=== PATIENT | male | born 1990 | race Two or more races ===

== ENCOUNTER 2017-05-24 02:07 | Observation (INO) | payer OTHER ==
[2017-05-24 02:46] LABS: ABS Basophils 0.1 10^3/ul (0-0.2); ABS Eosinophils 0.1 10^3/ul (0-0.6); ABS Lymphocytes 1.8 10^3/ul (1.0-4.8); ABS Monocytes 1.4 10^3/ul (0-0.8); ABS Neutrophils 16.2 10^3/ul (1.5-7.7); ABS Nucleated RBC 0 10^3/ul; Eosinophil % 0.5 % (0-6); Hematocrit 46 % (42-52); Hemoglobin 15.5 g/dl (14.0-18.0); Lymphocyte % 9.2 % (25-47); Mean Corpuscular HGB Conc 34 g/dl (31-36); Mean Corpuscular Hemoglobin 27 pg (27-31); Mean Corpuscular Volume 79 fL (80-94); Mean Platelet Volume 7 um3 (7.4-10.4); Nucleated Red Blood Cells % 0; Platelet Count 382 10^3/ul (150-450); Red Blood Count 5.81 10^6/ul (4.0-5.4); Red Cell Distribution Width 13 % (10.5-15); White Blood Count 19.6 10^3/ul (3.5-10.8)
[2017-05-24 03:04] LABS: EGFR Non-African American 89.3 (>60)
[2017-05-24] MEDS ORDERED: Metoclopramide IV* 5 MG/ML 2 ML VIAL IV SLOW PU ONE (03:11)
[2017-05-24] MEDS ORDERED: NS 0.9% 1000 ML* 1,000 ML IV ONE ×2 (03:11→07:41)
[2017-05-24] MEDS ORDERED: Morphine INJ* 4 MG/ML 1 ML CARPUJECT IV ONE (03:12)
[2017-05-24] MEDS ORDERED: Iohexol 300* (CONTRAST) 10 ML SDV IV ONE (03:36)
[2017-05-24] MEDS ORDERED: Morphine INJ* 4 MG/ML 1 ML SYRINGE (NEW SYRINGE VERSION) IV ONE (04:00)
[2017-05-24 06:19] LABS: Urine Appearance Clear; Urine Blood Negative (Negative); Urine Color Straw; Urine Ketones Negative (Negative); Urine Protein Negative (Negative); Urine Specific Gravity 1.004 (1.010-1.030); Urine Urobilinogen Negative (Negative)
--- NOTE | 2017-05-24 07:03 | ED ---
Zhen Lo Tecjoon, scribed for Wing Cortés MD on 05/24/17 at 0318 . Abdominal Pain/Male - HPI Summary HPI Summary: This patient is a 26 year old male presenting to [facility] with a chief complaint of abd pain since earlier tonight. The pain is rated 10/10 in severity. Symptoms aggravated by nothing. Symptoms alleviated by nothing. Patient states he has eaten nothing but salvadorean cordero. Patient additionally reports vomiting. Patient denies diarrhea - History of Current Complaint Chief Complaint: EDAbdPain Stated Complaint: ABD PAIN Time Seen by Provider: 05/24/17 03:05 Hx Obtained From: Patient Onset/Duration: Sudden Onset, Lasting Hours, Still Present Timing: Constant Severity Currently: Severe Pain Intensity: 10 Pain Scale Used: 0-10 Numeric Location: Diffuse Aggravating Factor(s): Nothing Alleviating Factor(s): Nothing Associated Signs And Symptoms: Positive: Negative - diarrhea, Other - vomiting - Allergies/Home Medications Allergies/Adverse Reactions: Allergies Allergy/AdvReac Type Severity Reaction Status Date / Time No Known Allergies Allergy Verified 05/24/17 02:12 PMH/Surg Hx/FS Hx/Imm Hx Previously Healthy: Yes Opthamlomology History: Denies: Hx Legally Blind EENT History: Denies: Hx Deafness Infectious Disease History: No Infectious Disease History: Denies: Traveled Outside the [place] in Last 30 Days - Family History Known Family History: Positive: Hypertension - Social History Lives: Alone Alcohol Use: None Hx Substance Use: No Substance Use Type: Reports: None Hx Tobacco Use: No Smoking Status (MU): Never Smoked Tobacco Review of Systems Positive: Fever Positive: Abdominal Pain, Vomiting. Negative: Diarrhea All Other Systems Reviewed And Are Negative: Yes Physical Exam - Summary Physical Exam Summary: VITAL SIGNS: Reviewed. GENERAL: Patient is a well-developed and nourished (MALE OR FEMALE) who is lying comfortable in the stretcher. Patient is not in any acute respiratory distress. HEAD AND FACE: No signs of trauma. No ecchymosis, hematomas or skull depressions. No sinus tenderness. EYES: PERRLA, EOMI x 2, No injected conjunctiva, no nystagmus. EARS: Hearing grossly intact. Ear canals and tympanic membranes are within normal limits. MOUTH: Oropharynx within normal limits. NECK: Supple, trachea is midline, no adenopathy, no JVD, no carotid bruit, no c- spine tenderness, neck with full ROM. CHEST: Symmetric, no tenderness at palpation LUNGS: Clear to auscultation bilaterally. No wheezing or crackles. CVS: Regular rate and rhythm, S1 and S2 present, no murmurs or gallops appreciated. ABDOMEN: Tenderness over RLQ. Bowel sounds are normal. EXTREMITIES: FROM in all major joints, no edema, no cyanosis or clubbing. NEURO: Alert and oriented x 3. No acute neurological deficits. Speech is normal and follows commands. SKIN: Dry and warm Triage Information Reviewed: Yes Vital Signs On Initial Exam: Initial Vitals Temp Pulse Resp BP Pulse Ox 100.0 F 101 16 128/81 99 05/24/17 02:09 05/24/17 02:09 05/24/17 02:09 05/24/17 02:09 05/24/17 02:09 Vital Signs Reviewed: Yes Diagnostics - Vital Signs Vital Signs Temp Pulse Resp BP Pulse Ox 05/24/17 02:09 100.0 F 101 16 128/81 99 - Laboratory Lab Results: Lab Results 05/24/17 05/24/17 05/24/17 Range/Units 02:35 02:35 02:35 WBC 19.6 H (3.5-10.8) 10^3/ul RBC 5.81 H (4.0-5.4) 10^6/ul Hgb 15.5 (14.0-18.0) g/dl Hct 46 (42-52) % MCV 79 L (80-94) fL MCH 27 (27-31) pg MCHC 34 (31-36) g/dl RDW 13 (10.5-15) % Plt Count 382 (150-450) 10^3/ul MPV 7 L (7.4-10.4) um3 Neut % (Auto) 82.7 (38-83) % Lymph % (Auto) 9.2 L (25-47) % Laurens % (Auto) 7.3 (1-9) % Eos % (Auto) 0.5 (0-6) % Baso % (Auto) 0.3 (0-2) % Absolute Neuts (auto) 16.2 H (1.5-7.7) 10^3/ul Absolute Lymphs (auto) 1.8 (1.0-4.8) 10^3/ul Absolute Monos (auto) 1.4 H (0-0.8) 10^3/ul Absolute Eos (auto) 0.1 (0-0.6) 10^3/ul Absolute Basos (auto) 0.1 (0-0.2) 10^3/ul Absolute Nucleated RBC 0 10^3/ul Nucleated RBC % 0 Sodium 134 (133-145) mmol/L Potassium 3.3 L (3.5-5.0) mmol/L Chloride 99 L (101-111) mmol/L Carbon Dioxide 26 (22-32) mmol/L Anion Gap 9 (2-11) mmol/L BUN 12 (6-24) mg/dL Creatinine 1.01 (0.67-1.17) mg/dL Est GFR ( Amer) 114.8 (>60) Est GFR (Non-Af Amer) 89.3 (>60) BUN/Creatinine Ratio 11.9 (8-20) Glucose 113 H (70-100) mg/dL Lactic Acid 1.2 (0.5-2.0) mmol/L Calcium 9.9 (8.6-10.3) mg/dL Total Bilirubin 0.90 (0.2-1.0) mg/dL AST 18 (13-39) U/L ALT 20 (7-52) U/L Alkaline Phosphatase 49 (34-104) U/L C-Reactive Protein 2.15 (< 5.00) mg/L Total Protein 7.9 (6.4-8.9) g/dL Albumin 4.7 (3.2-5.2) g/dL Globulin 3.2 (2-4) g/dL Albumin/Globulin Ratio 1.5 (1-3) Lipase 22 (11.0-82.0) U/L Result Diagrams: 05/24/17 02:35 05/24/17 02:35 Lab Statement: Any lab studies that have been ordered have been reviewed, and results considered in the medical decision making process. - CT CT Abd/Pel CT Interpretation: Positive (See Comments) - CT Abd/Pel reveals, per radiologist , IMPRESSION: Oral contrast reaches colon but does not fill appendix. Appendix diameter measures 6-7 mm and there is no periappendiceal inflamation. No bowel obstruction, colitis. Unremarkable pancreas. ED Physician has reviewed the report. CT Interpretation Completed By: Radiologist Re-Evaluation - Re-Evaluation First Eval Re-Evaluation Time: 06:47 Comment: Patient is still complaining of abd pain. Repeat exam shows that patient still has tenderness over RLQ. Abdominal Pain Fem Course/Dx - Course Course Of Treatment: This patient is a 26 year old male presenting to [facility] with a chief complaint of abd pain since earlier tonight. Bloodwork Obtained. Urinalysis Obtained. In the ED course the patient was given Iohexol, Reglan, Morphine. We discussed patient care with Dr. Tejada (Radiologist) and they recommended retaking CT Pelvis at 0900, after CT contrast spreads to appendix to make sure patient does not have appendicitis. Patient will be signed out to Dr. Rueda at end of shift. - Diagnoses Provider Diagnoses: Abdominal pain - Provider Notifications Discussed Care Of Patient With: Victoria Tejada - Radiologist Time Discussed With Above Provider: 06:51 - We discussed patient care with Dr. Tejada (Radiologist) and they recommended retaking CT Pelvis at 0900, after CT contrast spreads to appendix to make sure patient does not have appendicitis Discharge - Discharge Plan Condition: Stable Disposition: OTHER Discharge Disposition Comment: This patient will be signed out to Dr. Rueda at end of shift. Referrals: No Primary Care Phys,NOPCP [Primary Care Provider] - The documentation as recorded by the Zhen rivers Tecjoon accurately reflects the service I personally performed and the decisions made by , Wing Cortés MD.
[2017-05-24 07:56] LABS: ABS Basophils 0.1 10^3/ul (0-0.2); ABS Eosinophils 0 10^3/ul (0-0.6); ABS Monocytes 1.3 10^3/ul (0-0.8); ABS Neutrophils 15.3 10^3/ul (1.5-7.7); ABS Nucleated RBC 0 10^3/ul; Eosinophil % 0.1 % (0-6); Hematocrit 41 % (42-52); Hemoglobin 14.5 g/dl (14.0-18.0); Lymphocyte % 10.9 % (25-47); Mean Corpuscular HGB Conc 35 g/dl (31-36); Mean Corpuscular Hemoglobin 27 pg (27-31); Mean Corpuscular Volume 78 fL (80-94); Mean Platelet Volume 7 um3 (7.4-10.4); Nucleated Red Blood Cells % 0; Platelet Count 345 10^3/ul (150-450); Red Blood Count 5.29 10^6/ul (4.0-5.4); Red Cell Distribution Width 13 % (10.5-15); White Blood Count 18.7 10^3/ul (3.5-10.8)
--- NOTE | 2017-05-24 09:36 | RAD ---
Indication: Abdominal and RIGHT lower quadrant pain. COMPARISON: No relevant prior exams available on the [facility] [place] for comparison. TECHNIQUE: Multidetector CT images were obtained from the lung bases to the ischial tuberosities with 99 mL Omnipaque 300 IV and oral contrast. Multiplanar reformation. Repeat CT of the pelvis performed approximately 3.5 hours after the initial exam to assess for contrast opacification of the appendix. REPORT: Unremarkable visualized inferior thorax. The liver, gallbladder, pancreas, and spleen are unremarkable. Enteric contrast reaches the sigmoid colon on the initial exam and anal canal on the second pelvic exam. No CT abnormality of the upper GI. There is mild mural thickening of the terminal ileum with fatty infiltration of the bowel wall. Appendix visualized medial to the cecum measures up to 8 mm diameter. No compelling periappendiceal inflammatory change. Negative for enteric contrast opacification of the lumen of the appendix on the initial or follow-up exam. No appendicolith evident. Unremarkable colon. Negative for ascites, free air, hernias. Normal adrenal glands. Symmetric nephrograms and pyelograms. Normal variant extrarenal pelves. No suspicious focal renal lesions or hydronephrosis. Unremarkable nondilated ureters and partially distended urinary bladder. Symmetric seminal vesicles. Multiple subcentimeter short axis lymph nodes are noted at the RIGHT lower quadrant . Negative for lymphadenopathy based on short axis criteria. Normal diameter abdominal aorta and iliac arteries. Physiologic distention of the IVC. Negative for suspicious osseous lesions. A few tiny bone islands are noted at the pelvis and LEFT femoral head. IMPRESSION: 1. Mildly prominent appendix and multiple small lymph nodes at the RIGHT lower quadrant. Negative for contrast opacification of the appendiceal lumen on the initial or delayed images. Although there is no significant perienteric inflammatory stranding or appendicolith early appendicitis is not excluded. Correlate with clinical assessment. 2. Fatty infiltration of the terminal ileum bowel wall which may represent normal variation or be associated with inflammatory bowel disease. Negative for additional abnormality of the terminal ileum to favor inflammatory bowel disease. 3. Negative for ascites or free air.
[2017-05-24] MEDS ORDERED: Ondansetron INJ* 2 MG/ML VIAL IV PRN (11:39)
[2017-05-24] MEDS ORDERED: HYDROmorphone INJ* 2 MG/ML CARPUJECT SYRINGE IV PRN (11:39)
--- NOTE | 2017-05-24 13:23 | HP ---
CC: [facility], [facility] * HISTORY AND PHYSICAL: DATE OF ADMISSION: 05/24/17 HISTORY OF PRESENT ILLNESS: I was contacted by the emergency room physicians to evaluate Mr. Hanley, a 26-year-old gentleman who presented to the emergency room last night with complaints of severe and diffuse abdominal pain. The patient had multiple episodes of vomiting as well prior to arrival to the emergency room, also complained of diarrhea. Workup in the emergency room included labs and a CT scan. Original CT scan showed some inflammatory process in the terminal ileum as well as possibly normal appendix. He did have a white blood cell count of 19.6 on arrival and the concern by the morning was that patient had no discrete diagnosis and the radiology was reviewed with the hospital radiologist at that point who recommended a repeat CAT scan. When this was performed, there was a persistent mural thickening of the terminal ileum but this time it did show an appendix of approximately 8 mm with no significant inflammatory changes, however. During the night, patient's pain did resolve. I believe he did receive 1 dose of narcotics. He described pain as being 9 out of 10 upon arrival and now states it is about 3. He did receive morphine around 4 o'clock. He also received 2 bolus of IV fluids. The patient describes this pain now more in the right lower quadrant, although this is not pinpointable, it is nonradiating. The patient does have appetite, which started approximately 8'clock this morning. Prior to that, he had not been hungry. The patient denies any previous similar symptoms but does describe an intermittent history of bloody bowel movements most recent one being approximately 1 month ago. PAST MEDICAL HISTORY: None. PAST SURGICAL HISTORY: None. MEDICATIONS: None. ALLERGIES: No known drug allergies. FAMILY HISTORY: Noncontributory. No history of Crohn's disease or ulcerative colitis as far as patient knows. 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 He is from [facility]. REVIEW OF SYSTEMS: No fevers, but he has had chills. He did have temperature of max 100.3 in hospital. Denies any shortness of breath or chest pain. Appetite has returned. No bleeding or clotting disorders. No dysuria. Diarrhea as described above and metabolic disorders. 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 PHYSICAL EXAMINATION GENERAL: He is alert and oriented x3. He is in no apparent distress. VITAL SIGNS: T. max 100.3, T. current 98.6. He is afebrile. Vital signs are stable. HEAD, EARS, EYES, NOSE, AND THROAT: Normocephalic, atraumatic. Sclerae anicteric. Mucous membranes are moist. Neck: No lymphadenopathy. LUNGS: Clear to auscultation bilaterally. ABDOMEN: Soft, mild distention, tender in the right lower quadrant with some tenderness to percussion. Negative Rovsing sign. Negative psoas sign. No CVA tenderness. RECTAL: Performed, shows no masses. Stool in the vault is sent for guaiac. EXTREMITIES: Within normal limits. DIAGNOSTIC STUDIES/LAB DATA: Labs show white count that went from 19.6 to 18.7. He does have left shift now. His CRP is up to 10. Urinalysis was within normal limits and LFTs normal. CT scan reviewed. IMPRESSION: Right lower quadrant abdominal pain. Differential diagnosis includes acute appendicitis versus inflammatory bowel disease versus viral. I would like to admit patient for observation status and keep him n.p.o. with IV fluids and serial abdominal exam. I described to him that if he continues to improve, we may consider expectant treatment possibly with GI followup. If he does not show improvement or spikes fever, we will look towards diagnostic laparoscopy. Differential diagnosis is stronger on the idea of a inflammatory bowel disease, although we completely have not ruled out appendicitis and it might require a laparoscopy to do so. The patient's questions were answered as I described this to him. He will be admitted for observation, IV fluids, no antibiotics at this point [id number]/[facility] #: [id number] [facility]
--- NOTE | 2017-05-24 15:46 | PN ---
Progress Note - Progress Note Date of Service: 05/24/17 SOAP: Subjective: Pt seen and examined. COntinued RLQ pain. Objective: af vss abdo: soft/ distended, tender at RLQ, tender to percussion Assessment: abdominal pain, r/o appendicitis Plan: Diagnostic laparoscopy, appendectomy R/B/A discussed at length including differential diagnosis and pt' s questions were answered. pre-operative abx
[2017-05-24] MEDS ORDERED: Propofol* 10 MG/ML 20 ML BTL IV PUSH ONE (15:59)
[2017-05-24] MEDS ORDERED: Lidocaine 2% PF * 5 ML VIAL ONE (15:59)
[2017-05-24] MEDS ORDERED: Famotidine IV* 10 MG/ML 2 ML (20 mg) ONE (15:59)
[2017-05-24] MEDS ORDERED: Mivacurium Chloride* 20 MG/10 ML VIAL IV ONE (15:59)
[2017-05-24] MEDS ORDERED: fentaNYL* 50 MCG/ML 2 ML VIAL (100 MCG VIAL) ONE (15:59)
[2017-05-24] MEDS ORDERED: Dexamethasone IV* 4 MG/ML 1 ML (4 MG) ONE (15:59)
[2017-05-24] MEDS ORDERED: Midazolam* 1 MG/ML 2 ML VIAL (2 MG) ONE (15:59)
[2017-05-24] MEDS ORDERED: DiMENhydriNATE IV* 50 MG/ML VIAL IV PUSH PRN (16:10)
[2017-05-24] MEDS ORDERED: Naloxone* 0.4 MG/ML 1 ML VIAL IV PRN (16:10)
[2017-05-24] MEDS ORDERED: fentaNYL* 50 MCG/ML 2 ML VIAL (100 MCG VIAL) IV PRN (16:10)
[2017-05-24] MEDS ORDERED: PROCHLORPERAZINE INJ 5 MG/ML 2 ML VIAL IV PRN (16:10)
[2017-05-24] MEDS ORDERED: Acetaminophen TAB* 325 MG PO PRN ×2 (16:10→19:34)
[2017-05-24] MEDS ORDERED: Levalbuterol 0.63MG/3ML NEB* UNIT OF USE INH PRN (16:10)
[2017-05-24] MEDS ORDERED: Buffered Lidocaine 0.9% SYRIN* 5 ML/SYR SYRINGE INTRADERM ONE (16:10)
[2017-05-24] MEDS ORDERED: ceFOXitin 2 GM IVPREMIX* 2 GM/50 ML BAG ONE (16:18)
[2017-05-24] MEDS ORDERED: Bupivacaine 0.25% SDV* 30 ML ONE (16:25)
[2017-05-24] MEDS ORDERED: Ketorolac INJ* 30 MG/ML 1 ML VIAL ONE (17:21)
--- NOTE | 2017-05-24 17:41 | BRIEFOPN ---
Brief Operative Note - Surgery Procedures: Pre-OP Diagnoses: abdominal pain, r/o appendicitis Post-op Diagnosis: acute appendicitis Procedure: Diagnostic Laparoscopy, appendectomy Surgeon: [place] Asst: none Anethesia: LUDYA EBL: minimal IVF: crystalloid Specimen: appendix Drains: none
[2017-05-24] MEDS: oxyCODONE/Acetamin 5/325 MG* TAB PO PRN (19:51)
[2017-05-25] MEDS: oxyCODONE/Acetamin 5/325 MG* TAB PO PRN ×2 (03:40→08:30)
[2017-05-25 05:40] LABS: ABS Basophils 0 10^3/ul (0-0.2); ABS Eosinophils 0 10^3/ul (0-0.6); ABS Lymphocytes 1.2 10^3/ul (1.0-4.8); ABS Monocytes 0.6 10^3/ul (0-0.8); ABS Nucleated RBC 0 10^3/ul; Eosinophil % 0 % (0-6); Hematocrit 41 % (42-52); Hemoglobin 13.9 g/dl (14.0-18.0); Lymphocyte % 11.5 % (25-47); Mean Corpuscular HGB Conc 34 g/dl (31-36); Mean Corpuscular Hemoglobin 27 pg (27-31); Mean Corpuscular Volume 79 fL (80-94); Mean Platelet Volume 7 um3 (7.4-10.4); Nucleated Red Blood Cells % 0; Platelet Count 339 10^3/ul (150-450); Red Blood Count 5.13 10^6/ul (4.0-5.4); Red Cell Distribution Width 13 % (10.5-15); White Blood Count 10.8 10^3/ul (3.5-10.8)
[2017-05-25 05:56] LABS: EGFR Non-African American 106.1 (>60)
[2017-05-25 07:56] VITALS: BP 120/66
--- NOTE | 2017-05-25 08:37 | PN ---
Progress Note - Progress Note Date of Service: 05/25/17 SOAP: Subjective: Patient seen and examined at bedside. Reports doing well, just a little sore at incisions sites. Denies nausea, vomiting, fever or chill. Tolerating regular diet. Has no complaints today. Objective: Awake and alert, comfortable in bed, in NAD VSS, afebrile Lungs CTA bilat. Heart RRR Abdomen soft, NT, ND. Incisions C/D/I. No guarding or rigidity. I/O's notes Labs reviewed, WBCs normalized. Assessment: POD#1, s/p laparoscopic appendectomy, doing well. Plan: D/C IVF D/C to home today F/U with SACMA next week.
--- NOTE | 2017-05-25 10:58 | PN ---
Linda Lo Edward, scribed for Christiano Rueda MD on 05/24/17 at 0708 . Progress Note - Progress Note Date of Service: 05/24/17 Note: Pt signed out by Dr. Cortés pending repeat Pelvis CT at 09:00. Pelvis CT - 1. Mildly prominent appendix and multiple small lymph nodes at the RIGHT lower quadrant. Negative for contrast opacification of the appendiceal lumen on the initial or delayed images. Although there is no significant perienteric inflammatory stranding or appendicolith early appendicitis is not excluded. Correlate with clinical assessment. 2. Fatty infiltration of the terminal ileum bowel wall which may represent normal variation or be associated with inflammatory bowel disease. Negative for additional abnormality of the terminal ileum to favor inflammatory bowel disease. 3. Negative for ascites or free air. Spoke with Dr. Downing (surgery) at 10:15 who will consult for the pt. A/P - Pt signed out by Dr. Cortés to f/u second CT. I decided to repeat CRP and which showed WBC 18.7 and CRP 10.36 which increased from previous test. Discussed the case with Dr. Downing who assessed the pt, after his assessment, he accepted the for admission to his services for further workup and management. Dx - RLQ Pain Disposition: Admitted to Dr. Downing The documentation as recorded by the serafinibLinda sánchez Edward accurately reflects the service I personally performed and the decisions made by me, Christiano Rueda MD.
--- NOTE | 2017-05-25 21:06 | DS ---
DISCHARGE SUMMARY: DATE OF ADMISSION: 05/24/17 DATE OF DISCHARGE: 05/25/17 PATIENT OF: Arsh Downing MD * (DICTATED BY MARIA ISABEL REZA) ADMISSION DIAGNOSIS: Acute appendicitis. DISCHARGE DIAGNOSIS: Acute appendicitis. ADMITTING PHYSICIAN: Dr. Arsh Downing. CONSULTATIONS: None. PROCEDURES: Laparoscopic appendectomy on 05/24/17. BRIEF MEDICAL HISTORY: Mr. Hanley is a pleasant 26-year-old gentleman, who presented to the emergency room on 05/24/17 with complaints of continued right lower quadrant abdominal pain. The patient had laboratory workup that revealed significant leukocytosis and CT scan that questioned possibility of appendicitis. He was examined and found to be tender at the right lower quadrant with a somehow distended abdomen for which, we discussed with him proceeding with a diagnostic laparoscopy and possible appendectomy. HOSPITAL COURSE: The patient was taken to the operating room on 05/24/17, where he had a laparoscopic appendectomy. His postoperative period was essentially unremarkable. He was kept on the surgical floor for observation overnight. He did relatively well with only mild incisional discomfort that was well tolerated using pain medicine as needed. He was ambulatory out of bed in stable condition. He started on clear liquid diet that he tolerated well and his diet eventually advanced to a regular diet later on the next morning. His laboratory workup was repeated and his leukocytosis was eventually resolved on the next day. We discussed with him discharge to home today and would be given a script for Percocet to use as needed for pain and he will be seen in the office next week for a followup. All the discharge instructions, questions, and other concern were answered and the patient is stable to be discharged home. DISCHARGE MEDICATIONS: Include Percocet 5/325 mg 1 to 2 tablets q.6 hours as needed for pain. PROBLEM LIST: Right lower quadrant pain and acute appendicitis, status post laparoscopic appendectomy on 05/24/17. MARIA ISABEL REZA [id number]/[facility] #: [id number] MTDD
--- NOTE | 2017-05-26 14:57 | OP ---
CC: [facility] * DATE OF OPERATION: 05/24/17 - ROOM #347 DATE OF : 89. SURGEON: Arsh Downing MD. SPLICING TECHNICIAN: None. ANESTHESIOLOGIST: Dr. Farias. ANESTHESIA: General. PRE-OP DIAGNOSIS: Abdominal pain, rule out appendicitis. POST-OP DIAGNOSIS: Acute appendicitis. OPERATIVE PROCEDURE: Diagnostic laparoscopy and appendectomy. ESTIMATED BLOOD LOSS: Minimal. IV FLUIDS: Minimal crystalloid fluid given. SPECIMEN: Appendix. COUNTS: Lap pad count and instrument count correct at the end of the procedure. DESCRIPTION OF PROCEDURE: Mr. Hanley is a 26-year-old gentleman who I admitted to my service with abdominal pain for observation status. My concern was a differential diagnosis that include inflammatory bowel disease. After observation of the patient, I recommended diagnostic laparoscopy. I outlined the details of the procedure, going over the risks, benefits, and alternatives. We spoke of the possible complications which included, but not limited to, bleeding, infection, bowel injury, need for open procedure, need for additional procedures, adjacent organ injury. The patient's questions were answered and he agreed to proceed. He was taken to the operating room, placed on the operating table in supine position. Preoperative antibiotics were given. Sequential devices were placed on bilateral lower extremities. General anesthesia was induced. The patient's abdomen was clipped of hair and prepped and draped in the standard surgical fashion. A time-out was performed. Folds of the umbilicus were elevated anteriorly and a Veress needle was inserted through the abdominal cavity which was then allowed to inflate to pressure of 15 mmHg. The patient tolerated the insufflation well. A 5-mm trocar was placed infraumbilically. Laparoscope was inserted through this. There was no evidence of injury from the trocar insertion. An additional 5 mm trocar was placed in the left lower quadrant. Camera was shifted to this and a 5 mm trocar at the umbilicus was upsized to a 12 mm. Review of the abdomen showed no free fluid. The small bowel appeared pink and within normal limits. A 5 mm trocar was then placed in the suprapubic area and the patient was placed in a Trendelenburg, right side up position. This allowed us to identify an inflamed appendix. This was the tip of the appendix and it had extended towards the cecum, but there was a veil of attachments that needed to be taken down to fully appreciate the base of the appendix. I felt at this point confident that that was the diagnosis, but we ran the small bowel retrograde from the terminal ileum. I did not see any thickened small bowel. There were no lesions suggestive of inflammatory bowel disease. Review of the pelvis showed no fluid. The appendix itself was stiff and indurated with mild injection, but no evidence of perforation or gangrene. Both sharp and blunt dissection were utilized to free the base of the appendix off from the lateral side wall. We continued our dissection to remove a portion of the cecum, so we can rotate this medially. A window was made at the base of the appendix and the mesentery, so the appendix was taken with a 45 mm helms CHRISTEL stapling device. Additional mesentery was taken with cautery until we had the appropriate base of the appendix elevated anteriorly. We then stapled this off with a 45 mm parikh CHRISTEL stapling device and placed it in an endoscopic retrieval bag. We did place a gauze in the abdomen to dry up some bleeding that occurred during the dissection. This stopped on its own and the gauze was removed. The appendix in the endoscopic retrieval bag was then removed through the umbilical port site. Trocar was removed at this side. We reapproximated the fascia with an 0 Polysorb suture using an Endo Close device. The abdomen was allowed to collapse. Trocars were removed under direct vision and all 3 skin incisions were reapproximated with 4-0 Monocryl subcuticular sutures followed by Steri-strips and sterile dressings. The patient tolerated the procedure well, was woken up in the OR and transferred to PACU in stable condition. [id number]/[facility] #: [id number] DARCI
== END 2017-05-25 11:40 | disposition home or self-care (01) ==
LOC: ED 02:07 → SSU 12:10
PROVIDERS: ADMIT Surgery; ATTEND Surgery
PROC: 0DTJ4ZZ Resection of Appendix, Percutaneous Endoscopic Approach (ICD-10-PCS; principal; 2017-05-24 16:13)
DX: K35.80 Unspecified acute appendicitis (principal); R10.31 Right lower quadrant pain; R11.10 Vomiting, unspecified; R50.9 Fever, unspecified
CPT/HCPCS: 36415; 72192; 74177; 80048; 80053; 81003; 82270; 83605; 83690; 85025; 86140; 94760; 96374; 96375; 99283; A9270-GY; C1776; G0378; J0694; J1100; J1885; J2250; J2270; J2704; J2765; J3010; J7614; Q9967